=== PATIENT | male | born 1965 | race American Indian/Alaskan Native ===

== ENCOUNTER 2016-12-24 13:06 | Emergency (ER) | payer MEDICARE ==
[2016-12-24 13:36] LABS: Basophils % (Auto) 0.6 % (0.0-1.8); Eosinophils % (Auto) 0.8 % (0.0-4.3); Hematocrit 43.2 % (35.5-45.6); Hemoglobin 13.8 gm/dl (11.8-15.2); Mean Corpuscular HGB Conc 32 % (32-34); Mean Corpuscular Hemoglobin 28 pg (28-32); Mean Corpuscular Volume 88 fl (84-94); Platelet Count 257 K/mm3 (140-440); Red Blood Count 4.93 M/mm3 (3.65-5.03); Red Cell Distribution Width 13.8 % (13.2-15.2); White Blood Count 13.9 K/mm3 (4.5-11.0)
[2016-12-24 13:55] LABS: Anion Gap 16 mmol/L; Blood Urea Nitrogen 8 mg/dL (9-20); Calcium 8.5 mg/dL (8.4-10.2); Carbon Dioxide 25 mmol/L (22-30); Chloride 103.4 mmol/L (98-107); Glucose 120 mg/dL (75-100); Sodium 140 mmol/L (137-145)
--- NOTE | 2016-12-24 14:26 | XRay Report ---
CHEST 2 VIEWS INDICATION: Shortness of breath. COMPARISON: None similar at this institution. FINDINGS: PA and lateral chest radiographs demonstrate normal cardiomediastinal silhouette and clear lungs, given the inspiration. Few hilar calcifications versus vascular. Intact bones. CONCLUSION: No acute disease. Thank you for the opportunity to participate in this patient's care.
[2016-12-24 17:25] VITALS: BP 168/101
[2016-12-24] MEDS ORDERED: BABY ASPIRIN ONE (18:07)
--- NOTE | 2016-12-24 18:09 | Emergency Department Report ---
HPI - General Chief Complaint: Dyspnea/Respdistress Time Seen by Provider: 12/24/16 17:39 - HPI HPI: Room 17 The patient is a 51-year-old male cousin with a chief complaint of chest pain. The patient states this morning at approximately 02:00 this morning he developed substernal chest pain described as pressure while at rest. Patient states the pressure has been intermittent. The patient admits to shortness of breath but denies nausea/vomiting or diaphoresis. The patient currently gives his chest pressure score of 7-8/10. The patient states she had a stress test 6 months ago that was normal but he has never had a cardiac catheterization Location: Chest Duration: [see above] Quality: Pressure Severity: 7-8/10 Modifying factors: [see above] Context: [see above] Mode of transportation: [not driving] ED Past Medical Hx - Past Medical History Hx Hypertension: Yes Additional medical history: MORBID OBESITY - Surgical History Past Surgical History?: No - Family History Family history: no significant - Social History Smoking Status: Current Every Day Smoker Substance Use Type: None - Medications Home Medications: Home Medications Medication Instructions Recorded Confirmed Last Taken Type Aspirin [Aspirin BABY CHEW TAB] 81 mg PO QDAY 12/24/16 12/24/16 Unknown History Hydrochlorothiazide [HCTZ] 25 mg PO QDAY 12/24/16 12/24/16 Unknown History amLODIPine [Norvasc] 10 mg PO DAILY 12/24/16 12/24/16 Unknown History ED Review of Systems ROS: Stated complaint: CHEST PAIN Other details as noted in HPI Comment: All other systems reviewed and negative Constitutional: denies: chills, fever Eyes: denies: eye pain, eye discharge, vision change ENT: denies: ear pain, throat pain Respiratory: shortness of breath Cardiovascular: chest pain Endocrine: no symptoms reported Gastrointestinal: denies: abdominal pain, nausea, diarrhea Genitourinary: denies: urgency, dysuria Musculoskeletal: denies: back pain, joint swelling, arthralgia Skin: denies: rash, lesions Neurological: denies: headache, weakness, paresthesias Psychiatric: denies: anxiety, depression Hematological/Lymphatic: denies: easy bleeding, easy bruising Physical Exam - Physical Exam Vital Signs: Vital Signs 12/24/16 12/24/16 13:20 17:11 Temperature 98.8 F Pulse Rate 84 89 Respiratory 20 18 Rate Blood Pressure 180/109 Blood Pressure 168/101 [Right] O2 Sat by Pulse 100 99 Oximetry Physical Exam: GENERAL: The patient is well-developed well-nourished male lying on stretcher not appearing to be in acute distress. [] HEENT: Normocephalic. Atraumatic. Extraocular motions are intact. Patient has moist mucous membranes. NECK: Supple. No meningitic signs are noted. There is no adenopathy noted. CHEST/LUNGS: Clear to auscultation. There is no respiratory distress noted. HEART/CARDIOVASCULAR: Regular. There is no tachycardia. There is no gallop rub or murmur. ABDOMEN: Abdomen is soft, nontender. Patient has normal bowel sounds. There is no abdominal distention. SKIN: There is no rash. There is no edema. There is no diaphoresis. NEURO: The patient is awake, alert, and oriented. The patient is cooperative. The patient has normal speech MUSCULOSKELETAL:There is no evidence of acute injury. ED Course Vital Signs 12/24/16 12/24/16 13:20 17:11 Temperature 98.8 F Pulse Rate 84 89 Respiratory 20 18 Rate Blood Pressure 180/109 Blood Pressure 168/101 [Right] O2 Sat by Pulse 100 99 Oximetry ED Medical Decision Making - Lab Data Result diagrams: 12/24/16 13:25 12/24/16 13:25 Laboratory Tests 12/24/16 12/24/16 13:25 13:25 WBC 13.9 H RBC 4.93 Hgb 13.8 Hct 43.2 MCV 88 MCH 28 MCHC 32 RDW 13.8 Plt Count 257 Lymph % (Auto) 25.0 [place] % (Auto) 4.7 Eos % (Auto) 0.8 Baso % (Auto) 0.6 Lymph # 3.5 [place] # 0.7 Eos # 0.1 Baso # 0.1 Seg Neutrophils % 68.9 Seg Neutrophils # 9.6 H Sodium 140 Potassium 4.0 Chloride 103.4 Carbon Dioxide 25 Anion Gap 16 BUN 8 L Creatinine 0.8 Estimated GFR > 60 BUN/Creatinine Ratio 10.00 Glucose 120 H Calcium 8.5 Troponin T < 0.010 - EKG Data -: EKG Interpreted by Mn EKG shows normal: sinus rhythm Rate: normal - EKG Data When compared to previous EKG there are: previous EKG unavailable - Radiology Data Radiology results: image reviewed (chest x-ray) interpreted by me: Chest x-ray-no focal infiltrates, no pneumothorax - Medical Decision Making I discussed with patient and family at bedside and my concern for his chest pain. I explained that a normal EKG and normal lab work does not exclude acute coronary syndrome. I discussed my concern that length with family and the patient verbalized is increased risk of increased morbidity and/or mortality should he leave the hospital AGAINST MEDICAL ADVICE. Patient verbalized understanding that it is POSSIBLE that he could be having a myocardial infarction at this time 18:28 the patient has changed his mind and decided to stay and be admitted to the hospital - Differential Diagnosis ACS, GERD, pericarditis Critical care attestation.: If time is entered above; I have spent that time in minutes in the direct care of this critically ill patient, excluding procedure time. ED Disposition Clinical Impression: Chest pain Disposition: LEFT AGAINST MEDICAL ADVICE Is pt being admited?: No Does the pt Need Aspirin: Yes Condition: Fair Instructions: Chest Pain (ED) Referrals: PRIMARY CARE,MD [Primary Care Provider] - 3-5 Days Forms: AMA Form Time of Disposition: 18:28 (hospitalist paged)
[2016-12-24] MEDS ORDERED: ASPIRIN PO ONE (18:12)
[2016-12-24] MEDS ORDERED: NITRO-BID 2% TP ONE (18:29)
[2016-12-24] MEDS ORDERED: ZOFRAN IV ONE (18:29)
[2016-12-24] MEDS ORDERED: CATAPRES PO ONE (18:29)
[2016-12-24] MEDS ORDERED: MORPHINE IV ONE (18:29)
== END 2016-12-24 18:58 | disposition left against medical advice (07) ==
LOC: ED 13:06
DX: R07.2 Precordial pain (principal); I10 Essential (primary) hypertension; E66.01 Morbid (severe) obesity due to excess calories; F17.200 Nicotine dependence, unspecified, uncomplicated; Z79.82 Long term (current) use of aspirin
CPT/HCPCS: 36415; 71020; 80048; 84484; 85025; 93005; 93010; 99284

== ENCOUNTER 2017-03-25 18:36 | Emergency (ER) | payer MEDICARE ==
[2017-03-25 20:17] LABS: Basophils % (Auto) 0.5 % (0.0-1.8); Eosinophils % (Auto) 0.6 % (0.0-4.3); Hematocrit 44.6 % (35.5-45.6); Hemoglobin 14.6 gm/dl (11.8-15.2); Mean Corpuscular HGB Conc 33 % (32-34); Mean Corpuscular Hemoglobin 29 pg (28-32); Mean Corpuscular Volume 88 fl (84-94); Platelet Count 266 K/mm3 (140-440); Red Blood Count 5.07 M/mm3 (3.65-5.03); Red Cell Distribution Width 14.2 % (13.2-15.2); White Blood Count 12.3 K/mm3 (4.5-11.0)
[2017-03-25 20:22] LABS: Anion Gap 18 mmol/L; Blood Urea Nitrogen 9 mg/dL (9-20); Calcium 8.9 mg/dL (8.4-10.2); Carbon Dioxide 25 mmol/L (22-30); Chloride 101.9 mmol/L (98-107); Glucose 118 mg/dL (75-100); Potassium 4.1 mmol/L (3.6-5.0); Sodium 141 mmol/L (137-145)
--- NOTE | 2017-03-26 03:33 | Emergency Department Report ---
ED Chest Pain HPI - General Chief Complaint: Chest Pain Stated Complaint: JULIAN Time Seen by Provider: 03/26/17 03:18 Source: patient Mode of arrival: Ambulatory Limitations: No Limitations - History of Present Illness Initial Comments: 51-year-old male with a past medical history of obesity hypertension presents to the hospital complaining the chest pain this morning. Patient complains of felt like a pressure. Patient has several episodes of flatus and belching and had complete resolution of symptoms. He denies shortness of breath, nausea, vomiting, diaphoresis, calf tenderness, or edema. He reports negative stress test 6 months ago. Patient has been compliant with his aspirin although he ran out of his blood pressure pills 2-3 weeks ago. He does not have a primary care doctor. Severity scale (0 -10): 5 - Related Data Previous Rx's Medication Instructions Recorded Last Taken Type Aspirin [Aspirin BABY CHEW TAB] 81 mg PO QDAY #30 tab.chew 03/26/17 Unknown Rx Famotidine [Pepcid] 40 mg PO QHS #30 tablet 03/26/17 Unknown Rx Hydrochlorothiazide [HCTZ] 25 mg PO QDAY #30 tablet 03/26/17 Unknown Rx Mag Hydrox/Al Hydrox/Simeth 20 ml PO QID PRN #1 bottle 03/26/17 Unknown Rx [Maalox Advanced Suspension] amLODIPine [Norvasc] 10 mg PO DAILY #30 tablet 03/26/17 Unknown Rx Allergies Allergy/AdvReac Type Severity Reaction Status Date / Time No Known Allergies Allergy Unverified 12/24/16 13:18 Heart Score - HEART Score History: Slightly suspicious EKG: Normal Age: 45-65 Risk factors: > 3 risk factors or hx of atherosclerotic disease Troponin: < normal limit HEART Score: 3 ED Review of Systems ROS: Stated complaint: JULIAN Other details as noted in HPI Comment: All other systems reviewed and negative Other: Constitutional: No fevers chills Eyes: No eye pain visual changes ENT: No ear pain or throat pain Neck: Denies pain Respiratory: Denies cough wheezing shortness of breath Cardiovascular: As per HPI GI: Denies abdominal pain, nausea, vomiting, diarrhea : Denies dysuria Musculoskeletal: Denies back pain, joint swelling Skin: Denies rash, lesions, erythema Neurologic: Denies headache, numbness, weakness Psychiatric: Denies suicidal ideation, hallucinations ED Past Medical Hx - Past Medical History Previous Medical History?: Yes Hx Hypertension: Yes Additional medical history: MORBID OBESITY - Surgical History Past Surgical History?: No - Social History Smoking Status: Current Every Day Smoker Substance Use Type: None - Medications Home Medications: Home Medications Medication Instructions Recorded Confirmed Last Taken Type Aspirin [Aspirin BABY CHEW TAB] 81 mg PO QDAY #30 tab.chew 03/26/17 Unknown Rx Famotidine [Pepcid] 40 mg PO QHS #30 tablet 03/26/17 Unknown Rx Hydrochlorothiazide [HCTZ] 25 mg PO QDAY #30 tablet 03/26/17 Unknown Rx Mag Hydrox/Al Hydrox/Simeth 20 ml PO QID PRN #1 bottle 03/26/17 Unknown Rx [Maalox Advanced Suspension] amLODIPine [Norvasc] 10 mg PO DAILY #30 tablet 03/26/17 Unknown Rx ED Physical Exam - General Limitations: No Limitations - Other Other exam information: General: No limitations, patient is alert in no acute distress Head exam: Atraumatic, normocephalic Eyes exam: Normal appearance ENT: Moist mucous membrane, normal oropharynx Neck exam: Normal inspection, full range of motion, no meningismus nontender Respiratory exam: Clear to auscultation bilateral, no wheezes, rales, crackles Cardiovascular: Normal rate and rhythm, normal heart sounds, chest wall nontender Abdomen: Soft, nondistended, and nontender, with normal bowel sounds, no rebound, or guarding Extremity: Full range of motion normal inspection no deformity, no calf tenderness or edema Back: Normal Inspection, full range of motion, no tenderness Neurologic: Alert, oriented x3, cranial nerves intact, no motor or sensory deficit Psychiatric: normal affect, normal mood Skin: Warm, dry, intact ED Course Vital Signs 03/25/17 03/25/17 03/26/17 19:21 23:46 02:13 Temperature 98.6 F 98.6 F Pulse Rate 103 H 88 104 H Respiratory 20 18 18 Rate Blood Pressure 151/105 140/101 Blood Pressure 122/89 [Left] O2 Sat by Pulse 97 98 95 Oximetry 03/26/17 03/26/17 02:43 03:32 Temperature 98.3 F Pulse Rate 90 Respiratory 18 20 Rate Blood Pressure Blood Pressure 142/96 [Left] O2 Sat by Pulse 95 99 Oximetry - Reevaluation(s) Reevaluation #1: 03/26/17 03:31 Patient asymptomatic at this time pending repeat vital signs HOMAR score - Homar Score Age > 65: (0) No Aspirin use within the Past 7 Days: (0) No 3 or more CAD Risk Factors: (1) Yes 2 or more Angina events in past 24 hrs: (1) Yes Known CAD with more than 50% Stenosis: (0) No Elevated Cardiac Markers: (0) No ST Deviation Greater than 0.5mm: (0) No HOMAR Score: 2 ED Medical Decision Making - Lab Data Result diagrams: 03/25/17 19:48 03/25/17 19:48 Lab Results 03/25/17 03/25/17 03/25/17 Range/Units 19:48 19:48 23:12 WBC 12.3 H (4.5-11.0) K/mm3 RBC 5.07 H (3.65-5.03) M/mm3 Hgb 14.6 (11.8-15.2) gm/dl Hct 44.6 (35.5-45.6) % MCV 88 (84-94) fl MCH 29 (28-32) pg MCHC 33 (32-34) % RDW 14.2 (13.2-15.2) % Plt Count 266 (140-440) K/mm3 Lymph % (Auto) 22.8 (13.4-35.0) % [place] % (Auto) 4.9 (0.0-7.3) % Eos % (Auto) 0.6 (0.0-4.3) % Baso % (Auto) 0.5 (0.0-1.8) % Lymph # 2.8 (1.2-5.4) K/mm3 [place] # 0.6 (0.0-0.8) K/mm3 Eos # 0.1 (0.0-0.4) K/mm3 Baso # 0.1 (0.0-0.1) K/mm3 Seg Neutrophils % 71.2 H (40.0-70.0) % Seg Neutrophils # 8.8 H (1.8-7.7) K/mm3 Sodium 141 (137-145) mmol/L Potassium 4.1 (3.6-5.0) mmol/L Chloride 101.9 (98-107) mmol/L Carbon Dioxide 25 (22-30) mmol/L Anion Gap 18 mmol/L BUN 9 (9-20) mg/dL Creatinine 0.9 (0.8-1.5) mg/dL Estimated GFR > 60 ml/min BUN/Creatinine Ratio 10.00 % Glucose 118 H (75-100) mg/dL Calcium 8.9 (8.4-10.2) mg/dL Troponin T < 0.010 < 0.010 (0.00-0.029) ng/mL 03/26/17 Range/Units 02:16 WBC (4.5-11.0) K/mm3 RBC (3.65-5.03) M/mm3 Hgb (11.8-15.2) gm/dl Hct (35.5-45.6) % MCV (84-94) fl MCH (28-32) pg MCHC (32-34) % RDW (13.2-15.2) % Plt Count (140-440) K/mm3 Lymph % (Auto) (13.4-35.0) % [place] % (Auto) (0.0-7.3) % Eos % (Auto) (0.0-4.3) % Baso % (Auto) (0.0-1.8) % Lymph # (1.2-5.4) K/mm3 [place] # (0.0-0.8) K/mm3 Eos # (0.0-0.4) K/mm3 Baso # (0.0-0.1) K/mm3 Seg Neutrophils % (40.0-70.0) % Seg Neutrophils # (1.8-7.7) K/mm3 Sodium (137-145) mmol/L Potassium (3.6-5.0) mmol/L Chloride (98-107) mmol/L Carbon Dioxide (22-30) mmol/L Anion Gap mmol/L BUN (9-20) mg/dL Creatinine (0.8-1.5) mg/dL Estimated GFR ml/min BUN/Creatinine Ratio % Glucose (75-100) mg/dL Calcium (8.4-10.2) mg/dL Troponin T < 0.010 (0.00-0.029) ng/mL - EKG Data -: EKG Interpreted by Me (nsr rate 77, sinus arrhythmia) - EKG Data When compared to previous EKG there are: no significant change (12/24/16) - Radiology Data Radiology results: image reviewed (chest x-ray: No acute findings) - Medical Decision Making Patient's symptoms seem to be related to gas since pressure relieved with belching. Patient also has multiple negative cardiac enzymes, normal EKG, and reports a negative stress test within 6 months. He'll be treated symptomatically. Refill of his BP medications will be provided. NOrvasc restarted in the ed - Differential Diagnosis dyspepsia, gas, GERD, costochondritis, PR, atypical chest Critical Care Time: No Critical care attestation.: If time is entered above; I have spent that time in minutes in the direct care of this critically ill patient, excluding procedure time. ED Disposition Clinical Impression: Dyspepsia, HTN (hypertension), Obesity Disposition: TO HOME OR SELFCARE Is pt being admited?: No Does the pt Need Aspirin: No Condition: Stable Instructions: Hypertension (ED), Chronic Indigestion (ED) Additional Instructions: Take the medication as prescribed. Return if symptoms worsen. Please note your diagnosis is indigestion. Discharge instructions are for chronic indigestion since acute or new onset indigestion discharge instructors are not available. Prescriptions: amLODIPine [Norvasc] 10 mg PO DAILY #30 tablet Aspirin [Aspirin BABY CHEW TAB] 81 mg PO QDAY #30 tab.chew Famotidine [Pepcid] 40 mg PO QHS #30 tablet Hydrochlorothiazide [HCTZ] 25 mg PO QDAY #30 tablet Mag Hydrox/Al Hydrox/Simeth [Maalox Advanced Suspension] 20 ml PO QID PRN #1 bottle PRN Reason: Indigestion Referrals: FANNIE STODDARD MD [Staff Physician] - 3-5 Days Time of Disposition: 03:40
[2017-03-26] MEDS ORDERED: NORVASC PO ONE (03:40)
[2017-03-26 03:51] VITALS: BP 146/96
--- NOTE | 2017-03-26 07:22 | XRay Report ---
CHEST 2 VIEWS INDICATION: Cough, chest pain. COMPARISON: 12/24/2016 FINDINGS: PA and lateral chest radiographs demonstrate stable cardiomediastinal silhouette, including possible AP window lymph node calcifications. Clear lungs without pleural effusions or CHF. Intact bones. CONCLUSION: No acute chest process, as described. Thank you for the opportunity to participate in this patient's care.
== END 2017-03-26 03:50 | disposition home or self-care (01) ==
LOC: ED 18:36
DX: R10.13 Epigastric pain (principal); I10 Essential (primary) hypertension; E66.9 Obesity, unspecified; F17.200 Nicotine dependence, unspecified, uncomplicated; Z79.82 Long term (current) use of aspirin
CPT/HCPCS: 36415; 71020; 80048; 84484; 85025; 93005; 93010